=== PATIENT | female | born 2000 | race Hispanic/Latino ===

== ENCOUNTER 2023-02-07 22:58 | Emergency (ER) | payer BC ==
[~2023-02-07] VITALS: Ht 160 cm; Wt 58.1 kg
[2023-02-07 23:02] VITALS: BP 113/81
== END 2023-02-08 00:30 | disposition left against medical advice (07) ==
LOC: EDH 22:58
DX: R00.2 Palpitations (principal); Z53.21 Procedure and treatment not carried out due to patient leaving prior to being seen by health care provider
CPT/HCPCS: 93005

== ENCOUNTER 2025-06-26 10:30 | Emergency (ER) | payer BC, OTHER ==
[~2025-06-26] VITALS: Ht 160 cm; Wt 57.6 kg
--- NOTE | 2025-06-26 10:37 | ERN ---
ED Note History of Present Illness Stated Complaint: VAGINAL SPOTTING, + PREG TEST YESTERDAY Chief Complaint: Vaginal Bleeding Time Seen by MD: 10:32 Dictation: PATIENT IS A 24-YEAR-OLD FEMALE COMING IN TODAY WITH COMPLAINTS OF VAGINAL SPOTTING AND STATES SHE HAD A POSITIVE HOME TEST YESTERDAY. SHE IS HAVING NO PAIN AT THIS TIME. SHE STATES SHE CALLED HER DIABETES MANAGER DOCTOR, DR. NICOLE BARON WHO ADVISED HER THAT THAT THEY DO NOT DO TEST IN HER OFFICE. Allergies: Coded Allergies: No Known Allergies (Unverified Allergy, Unknown, 02/07/23) Past Medical History Past Medical History: No Pertinent History Surgical History: None LMP: May 23, 2025 : 1 Para: 0 RN Note Reviewed/Agreed w/PFSH: Yes Review of System Dictation CONSTITUTIONAL: NEGATIVE EXCEPT FOR HPI HEAD/FACE: NEGATIVE EXCEPT FOR HPI EENT: NEGATIVE EXCEPT FOR HPI RESPIRATORY: NEGATIVE EXCEPT FOR HPI GASTROINTESTINAL/ABDOMINAL: NEGATIVE EXCEPT FOR HPI GENITOURINARY: NEGATIVE EXCEPT FOR HPI VAGINAL SPOTTING MUSCULOSKELETAL: NEGATIVE EXCEPT FOR HPI INTEGUMENTARY: NEGATIVE EXCEPT FOR HPI NEUROLOGICAL/PSYCH: NEGATIVE EXCEPT FOR HPI HEMATOLOGIC/LYMPHATIC: NEGATIVE EXCEPT FOR HPI ALL SYSTEMS NEGATIVE, EXCEPT NOTED ABOVE. 13 POINT REVIEW OF SYSTEMS ASSESSED AND ALL NEGATIVE EXCEPT FOR ABOVE. Initial Vital Sign VS Vital Signs Date Time Temp Pulse Resp B/P (MAP) Pulse Ox O2 Delivery O2 Flow Rate FiO2 06/26/25 10:32 98.6 100 16 122/68 99 Room Air 0 Physical Exam Dictation VITAL SIGNS REVIEWED GENERAL APPEARANCE: ALERT, ORIENTED X 3, NO ACUTE DISTRESS, WELL DEVELOPED, NOURISHED. HEAD AND FACE: NON-TRAUMATIC. EYES: PERRL, PINK CONJUNCTIVAS, EYELID NO TRAUMA, ANTERIOR CHAMBER WITH ARCUS SENILIS. EARS: PINNAS INTACT AND NO SIGNS OF TRAUMA OR ERYTHEMA EAR CANALS CLEAR AND NO DISCHARGE TM NO ERYTHEMA NOSE: NO DISCHARGE, NO BLEEDING. OROPHARYNX: MOUTH NORMAL, TONGUE PINK, PHARYNX CLEAR,NO ERYTHEMA, TONSILS NO EXUDATES, NO ABSCESSES NOTED, MUCOUS MEMBRANE MOIST NECK: SUPPLE, NON-TENDER, NO THYROMEGALY, NO MASSES, NO JVD, NO BRUITS BREAST:DEFERRED CHEST:NO TENDERNESS, NO CREPITUS, NO PARADOXICAL MOVEMENT, NO RETRACTIONS LUNGS:CLEAR, WELL-VENTILATED, SYMMETRIC, NO RALES, NO WHEEZING, NO RHONCHI, NO STRIDOR, GOOD BREATH SOUNDS BILATERALLY HEART: REGULAR RATE, REGULAR RHYTHM, NO MURMUR, NO GALLOPS VASCULAR: NO PERIPHERAL EDEMA, ABDOMEN: SOFT, POSITIVE BOWEL SOUNDS, NONDISTENDED, NO GUARDING, NONTENDER, NO REBOUND, NO MASSES NO HEPATOMEGALY, NO SPLENOMEGALY, NO MAYA'S SIGN, NO HERNIAS. RECTAL: DEFERRED GENITAL: DEFERRED NEUROLOGICAL: NORMAL SPEECH, MOTOR FUNCTION INTACT, SENSORY FUNCTION INTACT MUSCULOSKELETAL: NECK NONTENDER, FULL RANGE OF MOTION, BACK NONTENDER, FULL RANGE OF MOTION, EXTREMITIES: NONTENDER, FULL RANGE OF MOTION SKIN: COLOR PINK, DRY, NO TURGOR, NO RASH, NO LACERATIONS, NO ABRASIONS, NO CONTUSIONS. LYMPHATIC: DEFERRED Results (Laboratory/Radiology) Laboratory/Radiology Laboratory Tests Test 06/26/25 10:34 White Blood Count 12.0 K/uL (4.8-10.8) H Red Blood Count 4.91 MIL/uL (4.00-5.50) Hemoglobin 13.3 g/dL (12.0-16.0) Hematocrit 39.4 % (36-48) Mean Corpuscular Volume 80.2 fL (79-99) Mean Corpuscular Hemoglobin 27.1 pg (27.0-33.0) Mean Corpuscular Hemoglobin Concent 33.8 g/dL (32.0-36.0) Red Cell Distribution Width 14.0 % (11.0-15.5) Platelet Count 369 K/uL (130-400) Mean Platelet Volume 9.5 fL (7.5-10.5) Immature Granulocyte % (Auto) 0.4 % (0-1) Neutrophils (%) (Auto) 68.2 % (40.0-77.0) Lymphocytes (%) (Auto) 25.1 % (21.0-51.0) Monocytes (%) (Auto) 5.4 % (3.0-13.0) Eosinophils (%) (Auto) 0.5 % (0.0-8.0) Basophils (%) (Auto) 0.4 % (0.0-5.0) Neutrophils # (Auto) 8.2 K/uL (1.8-7.7) H Lymphocytes # (Auto) 3.0 K/uL (1.0-4.8) Monocytes # (Auto) 0.7 K/uL (0.1-1.0) Eosinophils # (Auto) 0.06 K/uL (0.00-0.70) Basophils # (Auto) 0.05 K/uL (0.00-0.20) Absolute Immature Granulocyte (auto 0.05 K/uL (0-1) Nucleated Red Blood Cells 0.0 % (0.0-0.19) Sodium Level 136 mmol/L (136-145) Potassium Level 3.9 mmol/L (3.5-5.1) Chloride Level 104 mmol/L (101-111) Carbon Dioxide Level 25 mmol/L (21-32) Blood Urea Nitrogen 14 mg/dL (7-18) Creatinine 0.6 mg/dL (0.5-1.0) Glomerular Filtration Rate Calc 128 mL/min (>90) Random Glucose 85 mg/dL (70-105) Total Calcium 8.9 mg/dL (8.5-10.1) Human Chorionic Gonadotropin, Quant 402 mIU/mL (0-5) H 1145/OB ULTRASOUND DEMONSTRATES NO IUP AT THIS TIME. NO SAC SEEN Labs Reviewed?: Yes ED Course ED Course Orders Procedure Category Date Status Time Hcg,Quantitative LAB 06/26/25 Complete 10:34 Cbc With Differential LAB 06/26/25 Complete 10:35 Type And Screen BBK 06/26/25 In Process 10:35 Basic Metabolic Panel LAB 06/26/25 Complete 10:35 Us Ob <14 Weeks US 06/26/25 Taken 11:10 Vital Signs Date Time Temp Pulse Resp B/P (MAP) Pulse Ox O2 Delivery O2 Flow Rate FiO2 06/26/25 10:32 98.6 100 16 122/68 99 Room Air 0 Medical Decision Making MDM MDM: DIFFERENTIAL DIAGNOSIS: EARLY /ANEMIA/ELECTROLYTE IMBALANCE/DEHYDRATION/MISCARRIAGE/INCOMPLETE MISCARRIAGE RATIONALE: TESTS CONSIDERED AND ORDERED SECONDARY TO SHARED DECISION MAKING INCLUDE: LABS/ULTRASOUND PREVIOUS OUTSIDE RECORDS REVIEWED: OLD ER VISITS. RISK OF COMPLICATION AND/OR MORBIDITY OR MORTALITY OF PATIENT MANAGEMENT: NONE MEDICATIONS-PER MEDICATION RECONCILIATION NEED FOR HOSPITALIZATION: PATIENT DOES NOT MEET CRITERIA FOR HOSPITALIZATION. NONE NEED FOR EMERGENCY MAJOR/MINOR SURGERY: NO THERE ARE NO SOCIAL CONCERNS WITH THIS PATIENT. PRESCRIPTION DRUG MANAGEMENT NONE PATIENT ADVISED TO TAKE TYLENOL [id number], CONTINUE VITAMINS, SEE HER DIABETES MANAGER DOCTOR, DR. NICOLE BARON IN THE NEXT 1-2 DAYS PELVIC REST PRESCRIPTIONS WILL INCLUDE SYMPTOMATIC CARE PATIENT'S PRIOR EXTERNAL MEDICAL RECORDS FROM OTHER ER VISITS WERE REVIEWED BY ME INDICATED. PRIOR TESTING AND RESULTS FROM PREVIOUS VISITS WERE REVIEWED. PRIOR TESTS WERE TAKEN INTO ACCOUNT WITH MEDICAL DECISION MAKING AND RESOURCE UTILIZATION, INDEPENDENT HISTORIAN/HISTORIANS WERE USED TO OBTAIN COMPLETE MEDICAL HISTORY. I INDEPENDENTLY INTERPRETED THE TEST THAT WERE PERFORMED, RESULTS WERE REVIEWED BY ME AND CONSIDERED FINDINGS ON RADIOLOGY IF ORDERED. MEDICAL MANAGEMENT AND EXAMINATION INTERPRETATION DISCUSSIONS WERE HAD BY ME WITH OTHER QUALIFIED HEALTHCARE PROFESSIONALS INDICATED FOR THE PATIENT'S CARE. DX & DISP Disposition: Discharge Departure Impression: Primary Impression: Vaginal bleeding in patient at less than 20 weeks gestation Condition: Stable Additional Instructions: FOLLOW-UP WITH PRIMARY CARE PROVIDER IN 1 TO 2 DAYS. TAKE MEDICATIONS DIRECTED HERE IN THE EMERGENCY ROOM. OKAY TO CONTINUE HOME MEDICATIONS UNLESS OTHERWISE DISCUSSED DURING YOUR VISIT IN THE EMERGENCY ROOM TODAY. RETURN TO YOUR NEAREST EMERGENCY ROOM IF SYMPTOMS WORSEN OR IF THERE IS NO IMPROVEMENT. CALL 911 IF YOU NEED IMMEDIATE ASSISTANCE. TAKE TYLENOL [id number] NEEDED AND IF NO CONTRAINDICATIONS ARE PRESENT. INCREASE ORAL HYDRATION. A WOUND CULTURE OR URINE CULTURE WAS ORDERED HERE IN THE EMERGENCY ROOM DEPARTMENT PLEASE FOLLOW-UP WITH PRIMARY CARE PROVIDER AND ADVISE THEM TO GET REPEAT PORTS FROM OUR FACILITY. IF YOU HAD ANY CONSTANTINO WRAP/SPLINTS THAT WERE APPLIED HERE, PLEASE DO NOT REMOVE THEM UNTIL YOU SEE YOUR PRIMARY CARE OR SPECIALTY. TAKE VITAMINS/[id number] DAILY. TYLENOL ONLY FOR ANY PAIN. PELVIC REST AND NO SEX UNTIL CLEARED BY YOUR DIABETES MANAGER DOCTOR. NO SMOKING NO ALCOHOL USE, NO TOBACCO USE, AND ONLY TYLENOL ELIT-[id number] NEEDED FOR PAIN UNTIL YOUR CLEARED BY DR. NICOLE BARON. Referrals: SELF,REFERRAL (PCP) Time of Disposition: 11:47 I have reviewed the case, and I agree with, Diagnosis and Plan NAEEM PENALOZA NP Jun 26, 2025 10:37
[2025-06-26 10:52] LABS: IMMATURE GRANULOCYTE ABSOLUTE 0.05 K/uL (0-1); NUCLEATED RED BLOOD CELLS 0.0 % (0.0-0.19); PLATELET COUNT (AUTO) 369 K/uL (130-400); RED BLOOD CELL COUNT(AUTO) 4.91 MIL/uL (4.00-5.50); RED CELL DISTRIBUTION WIDTH 14.0 % (11.0-15.5); WHITE BLOOD COUNT (AUTO) 12.0 K/uL (4.8-10.8)
[2025-06-26 10:56] LABS: CREATININE 0.6 mg/dL (0.5-1.0); GLOMERULAR FILTR. RATE CALC 128.0 mL/min (>90); GLUCOSE,RANDOM 85.0 mg/dL (70-105); SODIUM SERUM 136.0 mmol/L (136-145); UREA NITROGEN, BLOOD 14.0 mg/dL (7-18)
[2025-06-26 12:16] VITALS: BP 118/82; PULSE 89; RESP 16; TEMP 98.7; O2SAT 98
--- NOTE | 2025-06-26 12:36 | HMCIMG ---
EXAM: US Obstetrical, Complete <14 weeks CLINICAL HISTORY: SPOTTING WITH A QUANT 402. RULE OUT COMPLETE AB TECHNIQUE: Transabdominal imaging of the maternal pelvis and a < 14-week gestation with image documentation. COMPARISON: None provided. FINDINGS: GA by LMP: 4 weeks 5 days Test: Positive (Quantitative ?-hCG: +402) UTERUS: Size: 6.7 ??? 4.7 ??? 5.8 cm. Uterus appears normal in size and echotexture. No focal myometrial lesion seen. ENDOMETRIUM: Thickness: 18 mm (ill-defined). No intrauterine gestational sac was visualized at this time. RIGHT OVARY: Size: 2.4 ??? 2.1 ??? 1.5 cm. Normal ovarian flow present. No cyst or mass lesion was seen. LEFT OVARY: Size: 3.1 ??? 2.6 ??? 3.3 cm. Normal ovarian flow present. No cyst or mass lesion seen. CUL-DE-SAC / FREE FLUID: No free fluid seen. IMPRESSION: 1. No intrauterine identified at this time. 2. Thickened endometrium measuring 18 mm, ill-defined. 3. Normal-appearing ovaries bilaterally. Follow-up scan suggested. Close clinical correlation with serial beta-hCG recommended. /[place]
== END 2025-06-26 12:20 | disposition home or self-care (01) ==
LOC: EDH 10:30
DX: O20.9 Hemorrhage in early pregnancy, unspecified (principal); R10.20 Pelvic and perineal pain unspecified side; Z3A.00 Weeks of gestation of pregnancy not specified
CPT/HCPCS: 36415; 76801; 80048; 84702; 85025; 86850; 86900; 86901; 99284